=== PATIENT | female | born 1955 | race Caucasian/White ===

== ENCOUNTER 2021-07-31 12:43 | Emergency (ER) | payer MEDICARE ==
[~2021-07-31] VITALS: Ht 160 cm; Wt 72.6 kg
[~2021-07-31 12:43] MED LIST: ALPRAZOLAM0.25 MG PO; DIOVAN HC2 PO; FAMOTIDINE20 M1 PO; LEVOTHYROXIN75 MC1 PO; LEXAPRO5 MG/5 ML PO; METOPROL TAR25 MG PO; NOVOLOG MIX SC; PRAVASTATIN20 MG PO
[2021-07-31 14:12] LABS: HEMOGLOBIN 11.5 g/dl (12.0-16.0); IMMATURE GRANULOCYTES 0.2 % (0.0-5.0); MEAN CORPUSCULAR HGB 34.8 pG CALC (26.0-32.0); MEAN CORPUSCULAR HGB CONC 33.8 g/dL CAL (32.0-36.0); NEUT# 7.13 thou/uL (2.00-7.15); RED BLOOD COUNT 3.3 mill/uL (4.20-5.60); RED CELL DISTRI WIDTH 13.5 % (11.5-15.5)
[2021-07-31 14:13] LABS: URINE BILIRUBIN - DIPSTICK NEGATIVE (NEGATIVE); URINE BLOOD DIPSTICK NEGATIVE (NEGATIVE); URINE COLOR YELLOW; URINE GLUCOSE - DIPSTICK 100 mg/dL (NEGATIVE); URINE KETONE NEGATIVE (NEGATIVE); URINE LEUK ESTERASE NEGATIVE (NEGATIVE); URINE PH 7.5 (4.5-8.0); URINE PROTEIN - DIPSTICK NEGATIVE (NEG-TRACE); URINE UROBILINOGEN - DIPSTICK 0.2 E.U./dL (0.2)
[2021-07-31 14:16] LABS: URINE NITRITE - DIPSTICK NEGATIVE (Negative)
[2021-07-31 14:22] LABS: ALBUMIN 3.3 g/dL (3.2-5.0); BILIRUBIN, TOTAL 0.6 mg/dL (0.0-1.4); BUN 15 mg/dL (8-23); BUN/CREATININE RATIO 21 (12-20 (CALC)); CARBON DIOXIDE 25 mmol/l (22-30); CHLORIDE 103 mmol/l (95-108); CREATININE 0.7 mg/dL (0.5-1.0); GFR > 60 ML/MIN (>=60 (CALC)); GFR FOR AFR.AMER. > 60 ML/MIN (>=60 (CALC)); SGOT/AST 22 u/l (9-36); TOTAL PROTEIN 6.1 g/dL (6.3-8.2)
[2021-07-31 14:24] LABS: ACT PARTIAL THROMBO TIME 19.8 SECONDS (20.0-32.5); ANION GAP 9 (6-22 (CALC)); POTASSIUM 3.2 mmol/l (3.5-5.1); SODIUM 134 mmol/l (137-146)
[2021-07-31 14:25] LABS: ALKALINE PHOSPHATASE 39 u/l (38-126)
[2021-07-31 16:59] VITALS: BP 119/59
== END 2021-07-31 16:59 | disposition home or self-care (01) ==
LOC: ED 12:43
PROVIDERS: Physician Assistant Surgical
DX: R55 Syncope and collapse (principal); I10 Essential (primary) hypertension; E11.9 Type 2 diabetes mellitus without complications; E78.5 Hyperlipidemia, unspecified; Z79.4 Long term (current) use of insulin

== ENCOUNTER 2022-01-08 02:31 | Observation (INO) | payer MEDICARE ==
[~2022-01-08] VITALS: Ht 160 cm; Wt 77.0 kg
[~2022-01-08 02:31] MED LIST changes: -ALPRAZOLAM0.25 MG PO; +LEXAPRO20 MG PO; -LEXAPRO5 MG/5 ML PO; +XANAX1 MG PO
--- NOTE | 2022-01-08 02:33 | NUR ---
PT AMBULATED TO ROOM 13 WITH STEADY GAIT.
[2022-01-08 02:38] VITALS: BP 174/90
--- NOTE | 2022-01-08 03:00 | NUR ---
Reassessment of patient completed. No distress noted.
--- NOTE | 2022-01-08 04:00 | NUR ---
Reassessment of patient completed. No distress noted.
[2022-01-08 04:45] LABS: HEMATOCRIT 39.3 % (37.0-47.0); HEMOGLOBIN 13.3 g/dl (12.0-16.0); IMMATURE GRANULOCYTES 0.5 % (0.0-5.0); MEAN CORPUSCULAR HGB 34.2 pG CALC (26.0-32.0); MEAN CORPUSCULAR HGB CONC 33.8 g/dL CAL (32.0-36.0); NEUT# 5.31 thou/uL (2.00-7.15); RED BLOOD COUNT 3.89 mill/uL (4.20-5.60); RED CELL DISTRI WIDTH 12.9 % (11.5-15.5)
[2022-01-08 04:46] LABS: ACT PARTIAL THROMBO TIME 22.8 SECONDS (20.0-32.5); INTERNATIONAL NORMALIZED RATIO 0.9 RATIO (0.7-1.3); PROTHROMBIN TIME 9.6 SECONDS (9.0-12.5)
[2022-01-08 04:47] LABS: ALBUMIN 4.1 g/dL (3.2-5.0); ALKALINE PHOSPHATASE 86 u/l (38-126); ANION GAP 9 (6-22 (CALC)); BILIRUBIN, TOTAL 0.4 mg/dL (0.0-1.4); BUN 22 mg/dL (8-23); BUN/CREATININE RATIO 31 (12-20 (CALC)); CARBON DIOXIDE 30 mmol/l (22-30); CHLORIDE 102 mmol/l (95-108); CREATININE 0.7 mg/dL (0.5-1.0); GFR > 60 ML/MIN (>=60 (CALC)); GFR FOR AFR.AMER. > 60 ML/MIN (>=60 (CALC)); LIPASE 160 u/l (23-300); POTASSIUM 3.8 mmol/l (3.5-5.1); SGOT/AST 28 u/l (9-36); SODIUM 137 mmol/l (137-146); TOTAL PROTEIN 7.6 g/dL (6.3-8.2)
--- NOTE | 2022-01-08 04:55 | NUR ---
Reassessment of patient completed. No distress noted.
[2022-01-08 05:00] VITALS: BP 141/70
[2022-01-08 05:30] VITALS: BP 140/70
--- NOTE | 2022-01-08 05:59 | NUR ---
PT ADMIT TO FLOOR REPORT CALLED TRANSFERRED PT WITHUT INCIDENCE
[2022-01-08 09:39] LABS: CHOLESTEROL HDL RATIO 4.7 (<4.4 (CALC))
--- NOTE | 2022-01-08 10:03 | NUR ---
PATIENT ALERT AND ORIENTED. NO REPORT PAIN AT THIS TIME. EDUCATED ABOUT MEDICATIONS AND PLAN OF CARE FOR TODAY. PATIENT REPORT UNDERSTAND.
[2022-01-08 10:34] VITALS: BP 123/57
[2022-01-08] MEDS ORDERED: ISOSORB MONO20 MG PO (11:32)
[2022-01-08] MEDS ORDERED: ZESTRIL40 MG PO (11:32)
[2022-01-08] MEDS ORDERED: BUPROPION HCL150 M2 PO (11:32)
[2022-01-08] MEDS ORDERED: METHOTREXATE S2.5 MG PO (11:33)
[2022-01-08] MEDS ORDERED: CARAFATE1 GM PO (11:33)
[2022-01-08] MEDS ORDERED: MECLIZINE25 MG PO (11:34)
[2022-01-08] MEDS ORDERED: ONDANSETRON4 MG PO (11:35)
[2022-01-08] MEDS ORDERED: PROTONIX40 M2 PO (11:35)
[2022-01-08] MEDS ORDERED: PREDNISONE5 MG PO (11:35)
[2022-01-08] MEDS ORDERED: AVALIDE 300-12.1 TAB PO (11:36)
[2022-01-08] MEDS ORDERED: FISH OIL1 CAP PO (11:37)
[2022-01-08] MEDS ORDERED: HYDROCODONE BIT1 TA7 PO (11:37)
--- NOTE | 2022-01-08 11:39 | NUR ---
Patient resting in bed. Stable at this time
--- NOTE | 2022-01-08 13:03 | NUR ---
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 Patient report understand.
== END 2022-01-08 13:09 | disposition home or self-care (01) ==
LOC: ED 02:31 → ED-I 04:55 → ED 05:11 → MS2 05:12
PROVIDERS: Nurse Practitioner; ADMIT Hospitalist; ATTEND Hospitalist
DX: R07.9 Chest pain, unspecified (principal); I10 Essential (primary) hypertension; E11.9 Type 2 diabetes mellitus without complications; E78.5 Hyperlipidemia, unspecified; E03.9 Hypothyroidism, unspecified; M32.9 Systemic lupus erythematosus, unspecified; M79.7 Fibromyalgia; F41.9 Anxiety disorder, unspecified; F32.A Depression, unspecified; Z79.4 Long term (current) use of insulin; Z20.822 Contact with and (suspected) exposure to COVID-19
CPT/HCPCS: G0378